=== PATIENT | female | born 1985 | race Caucasian/White ===

== ENCOUNTER → 2021-01-28 | Outpatient (CLI) | payer MEDICAID ==
[~2021-01-28] MED LIST: ACHD5005 PO; AMOX-358 PO; DOCU100C37 PO; IBUP-1773 PO; METR500T PO; OXC5T PO; OXYC1TAB11 PO; PREN1TAB86 PO
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
== END ==
LOC: RAD 11:23
PROVIDERS: ATTEND Nurse Practitioner Family
DX: M54.2 Cervicalgia (principal)
CPT/HCPCS: 72040

== ENCOUNTER → 2021-05-10 | Outpatient (CLI) | payer MEDICAID, OTHER ==
[~2021-05-10] MED LIST changes: +GADOBUTROL 10 MMOL/10 ML (GADAVIST) VIAL IV ONE
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
== END ==
LOC: RAD 08:00
PROVIDERS: ATTEND Nurse Practitioner Family
DX: S06.0X0D Concussion without loss of consciousness, subsequent encounter (principal); G44.311 Acute post-traumatic headache, intractable; M54.2 Cervicalgia; G43.019 Migraine without aura, intractable, without status migrainosus; V87.7XXD Person injured in collision between other specified motor vehicles (traffic), subsequent encounter
CPT/HCPCS: 70553